=== PATIENT | male | born 1980 | race Caucasian/White ===

== ENCOUNTER 2017-12-31 08:00 | Emergency (ER) | payer OTHER ==
[2017-12-31 08:42] VITALS: BP 125/73
[2017-12-31] MEDS ORDERED: ceFAZolin 500 MG VIAL(*) 500 MG VIAL IM ONE (09:24)
--- NOTE | 2017-12-31 09:43 | UC ---
Lower Extremity/Ankle HPI - HPI Summary HPI Summary: 37 yo gentleman c/o L leg redness, pain progressively x approx 5 days. No fever / chills. No groin adenopathy. Had a tattoo Sat on L calf (approx 6 days ago), has been caring for it with ointment from the tattoo store which he reports usually works well, dial soap. Redness and burning sensation around the tattoo. No distal p/d/w. - History of Current Complaint Chief Complaint: UCSkin Stated Complaint: LFT LEG PAIN Time Seen by Provider: 12/31/17 09:06 Hx Obtained From: Patient, Family/Senior Accountant Analyst Pain Intensity: 2 - Allergies/Home Medications Allergies/Adverse Reactions: Allergies Allergy/AdvReac Type Severity Reaction Status Date / Time Penicillins Allergy Unknown Verified 12/31/17 08:31 Reaction Details Home Medications: Home Medications Aspirin TAB* [Aspirin 325 MG TAB*] 1,300 mg PO Q6H PRN 12/31/17 [History Confirmed 12/31/17] PMH/Surg Hx/FS Hx/Imm Hx Previously Healthy: Yes - see hpi - Surgical History Surgical History: Yes Surgery Procedure, Year, and Place: right eye removed at age 15 yrs. - Family History Known Family History: Positive: Unknown - Social History Alcohol Use: None Alcohol Amount: 6-8 Substance Use Type: None Smoking Status (MU): Light Every Day Tobacco Smoker Type: Cigarettes Length of Time of Smoking/Using Tobacco: 1/4 pack daily for 20 years Have You Smoked in the Last Year: Yes Review of Systems Constitutional: Negative Skin: Other - see hpi Eyes: Negative ENT: Negative Respiratory: Negative Cardiovascular: Negative Gastrointestinal: Negative Genitourinary: Negative Motor: Other - see hpi Neurovascular: Negative Musculoskeletal: Other: - see hpi Neurological: Negative Psychological: Negative Is Patient Immunocompromised?: No All Other Systems Reviewed And Are Negative: Yes Physical Exam Triage Information Reviewed: Yes Appearance: Well-Nourished - sitting up, NAD. nontoxic appearance. Vital Signs: Initial Vital Signs Temp 99.7 F 12/31/17 08:34 Pulse 70 12/31/17 08:34 Resp 18 12/31/17 08:34 BP 125/73 12/31/17 08:34 Pulse Ox 100 12/31/17 08:34 Vital Signs Reviewed: Yes ENT Exam: Normal - grossly normal Neck exam: Normal - grossly normal Respiratory Exam: Normal - no tachypnea, no dyspnea. Cardiovascular Exam: Normal - normal rate, nondiaphoretic. Abdominal Exam: Normal Musculoskeletal Exam: Normal - see skin re leg details Neurological Exam: Normal - grossly normal Psychological Exam: Normal - conversing easily and appropriately Skin Exam: Other - LLE tattooe medial upper calf. There is redness expanding from the tattoo site, warmth to touch. Est approx 15cm x 20cm. Not sharply demarcated. Mild swelling. Distal pulses good. Distal cap ref good. Mild evidence of venous insuff. No sign drainage. + signs susp dermatitis. No specific venous cord or kimberly's appreciated. Lower Extremity Course/Dx - Course Course Of Treatment: S/sx c/w cellulitis L leg. Consided dvt, but doubtful. Advised pt to seek medical attention in the ED for worse or new symptoms. Reviewed wound care, avoid astringents. Abx IM here today (does not recall pcn allergy rxn). Rx doxy / mupirocin. Tet utd in the fall 2016. Questions as posed answered to the best of my ability. - Differential Dx/Diagnosis Provider Diagnoses: Cellulitis LLE Discharge - Discharge Plan Condition: Stable Disposition: HOME Prescriptions: DOXYcycline CAP(*) [DOXYcycline 100MG CAP(*)] 100 mg PO BID #20 cap Mupirocin 2% OINT* [Bactroban 2 % Oint*] 1 applic TOPICAL BID #1 tube Patient Education Materials: Cellulitis (ED) Forms: *Work Release Referrals: No Primary Care Phys,NOPCP [Primary Care Provider] - Additional Instructions: Elevate leg as much as possible. Seek medical attention for worse or new problems. Antibiotic ointment mupirocin - thin layer one - two times daily. Overlie dry gauze, tape as tolerable but not directly to red areas. Mild compression sock - you can purchase over the counter - during the day as tolerable. Avoid astingents.
== END 2017-12-31 10:00 | disposition home or self-care (01) ==
LOC: UCCORT 08:00
DX: L03.116 Cellulitis of left lower limb (principal); L81.8 Other specified disorders of pigmentation; Z90.01 Acquired absence of eye; F17.210 Nicotine dependence, cigarettes, uncomplicated
CPT/HCPCS: 96372; 99212; G0463; J0690